=== PATIENT | female | born 1955 | race Caucasian/White ===

== ENCOUNTER 2018-07-05 10:00 | Emergency (ER) | payer BC ==
[~2018-07-05] VITALS: Ht 157.5 cm; Wt 79.4 kg
--- OUTSIDE RECORDS SUMMARY | 2018-07-05 10:09 | XMS REPORT | Continuity of Care Document ---
Author Author [facility] Organization [facility] Address Unknown Phone Unavailable Allergies There is no data. Medications There is no data. Problems Date Dx Coded Attending Type Code Diagnosis Diagnosed By 07/05/2014 CHRISTOPHER CAMPOS Ot 327.23 Procedures There is no data. Results There is no data. Encounters ACCT No. Visit Date/Time Discharge Status Pt. Type Provider Facility Loc./Unit Complaint [id number] 07/05/2014 18:14:00 07/05/2014 18:33:00 DIS Outpatient CHRISTOPHER CAMPOS [facility] SLEEP [email or web address] 07/19/2014 17:08:07 ACT Document Registration
[2018-07-05] MEDS ORDERED: LISI10TA2 PO (10:13)
[2018-07-05] MEDS ORDERED: ASPIRIN 81 MG CHEW (CHILDREN'S ASA) PO ONE (10:15)
[2018-07-05 10:19] LABS: BASOPHILS % (AUTO) 0 % (0-10); EOSINOPHILS # (AUTO) 0.3 10^3/uL (0.0-0.3); EOSINOPHILS % (AUTO) 5 % (0-10); HEMATOCRIT 38 % (35-52); HEMOGLOBIN 13.4 G/DL (11.5-16.0); LYMPHOCYTES # (AUTO) 1.9 X 10^3 (1.0-4.0); LYMPHOCYTES % (AUTO) 35 % (12-44); MEAN CORPUSCULAR HEMOGLOBIN 30 PG (25-34); MEAN CORPUSCULAR HGB CONC 35 G/DL (32-36); MEAN CORPUSCULAR VOLUME 87 FL (80-99); MEAN PLATELET VOLUME 10.6 FL (7.4-10.4); MONOCYTES # (AUTO) 0.5 X 10^3 (0.0-1.0); MONOCYTES % (AUTO) 8 % (0-12); NEUTROPHILS # (AUTO) 2.8 X 10^3 (1.8-7.8); NEUTROPHILS % (AUTO) 51 % (42-75); PLATELET COUNT 216 10^3/uL (130-400); RED BLOOD COUNT 4.43 10^6/uL (4.35-5.85); RED CELL DISTRIBUTION WIDTH 12.9 % (10.0-14.5); WHITE BLOOD COUNT 5.4 10^3/uL (4.3-11.0)
[2018-07-05 10:44] LABS: MYOGLOBIN SERUM 26.5 NG/ML (10.0-92.0)
--- NOTE | 2018-07-05 10:57 | ED Chest Pain ---
General Chief Complaint: Chest Pain Stated Complaint: CHEST PAIN;BP ISSUES Nursing Triage Note: AMB TO ROOM WAS SENT FROM [facility] C/O CHEST PAIN THAT WOKE HER UP AT 5AM NO PAIN ON ADMIT Nursing Sepsis Screen: No Definite Risk Source: patient Exam Limitations: no limitations History of Present Illness Date Seen by Provider: Jul 05, 2018 Time Seen by Provider: 10:03 Initial Comments Here by private vehicle from [place] where she was seen in clinic this morning for chest pain. States that it woke her up at about 5 a.m. and continued for about 15 minutes. Pain was central and radiated to the right neck into her back. States that it was 7 out of 10 and ultimately resolved on its own. Denies breathing problems, diaphoresis, vomiting or weakness. Did have diarrhea 2 times this morning but otherwise has had no other symptoms. Does have history of significant heart disease in her father at about the same age who had coronary artery disease as well as aortic aneurysm. Timing/Duration: 4-6 hours, gone now Severity/Quality: moderate, pressure Location: central Radiation: neck, back Activities at Onset: sleep Prior CP/Workup: no prior chest pain Modifying Factors: improves with rest ASA po DEPLOYMENT TECHNICIAN: No NTG SL DEPLOYMENT TECHNICIAN: No Associated Symptoms: No abdominal pain; back pain; No diaphoresis, No dizziness , No edema, No fever/chills, No heartburn, No nausea/vomiting, No shortness of breath, No weakness Allergies and Home Medications Allergies Coded Allergies: No Known Drug Allergies (Unverified , 07/05/18) Home Medications Lisinopril 10 Mg Tablet, 10 MG PO DAILY, (Reported) Patient Home Medication List Home Medication List Reviewed: Yes Review of Systems Review of Systems Constitutional: see HPI; No chills, No fever EENTM: No Symptoms Reported Respiratory: No Symptoms Reported Cardiovascular: See HPI, Chest Pain; Denies Edema, Denies Lightheadedness Gastrointestinal: Diarrhea; Denies Vomiting Genitourinary: No Symptoms Reported Musculoskeletal: see HPI; No joint pain, No muscle pain Skin: no symptoms reported All Other Systems Reviewed Negative Unless Noted: Yes Past Sjzhwxs-Jxfrdn-Xoenhr Hx Past Med/Social Hx: Reviewed Nursing Past Med/Soc Hx Patient Social History Alcohol Use: Denies Use Recreational Drug Use: No Smoking Status: Former Smoker Recent Foreign Travel: No Contact w/Someone Who Travel: No Recent Infectious Disease Expo: No Past Medical History Surgeries: Yes Appendectomy, Gallbladder, Hysterectomy Respiratory: No Cardiac: 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 oz. 79.413548lk; BMI Method:Stated General Appearance: No Apparent Distress, WD/WN HEENT: PERRL/EOMI, Pharynx Normal Neck: Non Tender, Supple Respiratory: Lungs Clear, Normal Breath Sounds Cardiovascular: Regular Rate, Rhythm, No Murmur Gastrointestinal: Non Tender, Soft Extremity: Normal Range of Motion, Non Tender Neurologic/Psychiatric: Alert, Oriented x3 Skin: Normal Color, Warm/Dry Progress/Results/Core Measures Results/Orders Lab Results Laboratory Tests Test 07/05/18 10:10 07/05/18 10:46 Range/Units White Blood Count 5.4 4.3-11.0 10^3/uL Red Blood Count 4.43 4.35-5.85 10^6/uL Hemoglobin 13.4 11.5-16.0 G/DL Hematocrit 38 35-52 % Mean Corpuscular Volume 87 80-99 FL Mean Corpuscular Hemoglobin 30 25-34 PG Mean Corpuscular Hemoglobin Concent 35 32-36 G/DL Red Cell Distribution Width 12.9 10.0-14.5 % Platelet Count 216 130-400 10^3/uL Mean Platelet Volume 10.6 H 7.4-10.4 FL Neutrophils (%) (Auto) 51 42-75 % Lymphocytes (%) (Auto) 35 12-44 % Monocytes (%) (Auto) 8 0-12 % Eosinophils (%) (Auto) 5 0-10 % Basophils (%) (Auto) 0 0-10 % Neutrophils # (Auto) 2.8 1.8-7.8 X 10^3 Lymphocytes # (Auto) 1.9 1.0-4.0 X 10^3 Monocytes # (Auto) 0.5 0.0-1.0 X 10^3 Eosinophils # (Auto) 0.3 0.0-0.3 10^3/uL Basophils # (Auto) 0.0 0.0-0.1 10^3/uL Sodium Level 137 135-145 MMOL/L Potassium Level 4.2 3.6-5.0 MMOL/L Chloride Level 103 98-107 MMOL/L Carbon Dioxide Level 22 21-32 MMOL/L Anion Gap 12 5-14 MMOL/L Blood Urea Nitrogen 18 7-18 MG/DL Creatinine 0.78 0.60-1.30 MG/DL Estimat Glomerular Filtration Rate > 60 BUN/Creatinine Ratio 23 Glucose Level 102 70-105 MG/DL Calcium Level 10.2 H 8.5-10.1 MG/DL Corrected Calcium 8.5-10.1 MG/DL Magnesium Level 2.4 1.8-2.4 MG/DL Total Bilirubin 0.4 0.1-1.0 MG/DL Aspartate Amino Transf (AST/SGOT) 20 5-34 U/L Alanine Aminotransferase (ALT/SGPT) 11 0-55 U/L Alkaline Phosphatase 72 40-136 U/L Myoglobin 26.5 10.0-92.0 NG/ML Troponin I < 0.028 <0.028 NG/ML Total Protein 7.7 6.4-8.2 GM/DL Albumin 4.6 H 3.2-4.5 GM/DL Lipase 21 8-78 U/L Prothrombin Time 12.1 L 12.2-14.7 SEC INR Comment 0.9 0.8-1.4 Activated Partial Thromboplast Time 29 24-35 SEC D-Dimer 0.50 H 0.00-0.49 UG/ML Thyroid Stimulating Hormone (TSH) 2.65 0.35-4.94 UIU/ML My Orders Orders - ELVIE BRASWELL MD Cbc With Automated Diff (07/05/18 10:02) Magnesium (07/05/18 10:02) Chest 1 View, Ap/Pa Only (07/05/18 10:02) Ekg Tracing (07/05/18 10:02) Cardiac Profile 1 (07/05/18 10:02) Comprehensive Metabolic Panel (07/05/18 10:02) Myoglobin Serum (07/05/18 10:02) Protime With Inr (07/05/18 10:02) Partial Thromboplastin Time (07/05/18 10:02) O2 (07/05/18 10:02) Monitor-Rhythm Ecg Trace Only (07/05/18 10:02) Lipid Panel (07/06/18 06:00) Aspirin Chewable Tablet (Baby Aspirin Ch (07/05/18 10:15) Saline Lock/Iv-Start (07/05/18 10:02) Lipase (07/05/18 10:02) Fibrin Degradation Products (07/05/18 10:02) Thyroid Stimulating Hormone (07/05/18 11:32) Echo W Doppler/Color Flow (07/05/18 11:46) Echo Rest/Stress Wo (07/05/18 11:46) Medications Given in ED Current Medications Medications Dose Ordered Sig/Fabian Route Start Time Stop Time Status Last Admin Dose Admin Aspirin 324 mg ONCE ONCE PO 07/05/18 10:15 07/05/18 10:16 DC 07/05/18 10:16 324 MG Vital Signs/I&O 07/05/18 07/05/18 10:00 10:20 Temp 98.3 Pulse 78 58 Resp 18 18 B/P (MAP) 138/70 (92) 146/94 (111) Pulse Ox 100 98 O2 Delivery Room Air Room Air Blood Pressure Mean: 111 Progress Progress Note : Progress Note Seen and evaluated. IV, labs, EKG and chest x-ray ordered. ASA 324 mg by mouth ordered. Monitor patient. 1127: I did discuss the case with Dr. Jordan. He will see the patient in the ER. Anticipate stress test today. Patient to be admitted. 1140: Dr. Jordan in the department evaluating patient and may be able to send her directly to stress and echo. Further plan per him. I did add thyroid studies per patient request and due to recent hypertension. Monitor patient. 1300: Patient was able to go to stress and stress echo and passed both without difficulty. Dr. Jordan is okay with patient being discharged home and he will see her in a month. No further concerns about cardiac events currently. She will continue her current medication regimen. Discharged home with return precautions. Patient family verbalized understanding instructions and agreement with plan. Initial ECG Impression Date: Jul 05, 2018 Initial ECG Impression Time: 10:05 Initial ECG Rate: 71 Initial ECG Rhythm: Normal Sinus Comment Sinus rhythm with normal axis. Prominent Q waves noted in lead 3 with T wave inversion in lead 3. No evidence of ST elevation ND. No previous available for comparison. I did review EKG from outside clinic from this morning and does have similar morphology overall but Q waves more pronounced in lead 3 on this study as well as T wave inversion. Interpreted by me. Diagnostic Imaging Diagonstic Imaging: Xray Plain Films/CT/US/NM/MRI: chest Comments [email or web address]. [facility]. [place], [place] NAME: YAIR ALVARADO [facility] REC#: [id number] PT STATUS: REG ER : 1955 PHYSICIAN: ELVIE BRASWELL MD ADMIT DATE: 07/05/18/ER Draft Date of Exam:07/05/18 CHEST 1 VIEW, AP/PA ONLY INDICATION: Hypertension and chest pain. TECHNIQUE: A frontal chest was obtained at 1024 hours. FINDINGS: The heart and mediastinal silhouette are normal in appearance. The lungs are clear. There is no pneumothorax or pleural fluid. IMPRESSION: Negative chest. Dictated on workstation # [id number] Dict: 07/05/18 1106 Trans: 07/05/18 1111 [id number] Interpreted by: ELI TEE MD Electronically signed by: Departure Communication (Admissions) Time/Spoke to Consulting Phy: 11:35 Impression Primary Impression: Chest pain Qualified Codes: R07.9 - Chest pain, unspecified Disposition: HOME, SELF-CARE Condition: Improved Departure-Patient Inst. Decision time for Depature: 13:15 Referrals: JOSE LUIS JORDAN MD Patient Instructions: Chest Pain (DC) Add. Discharge Instructions: All discharge instructions reviewed with patient and/or family. Voiced understanding. Continue home medications as directed. You may take an additional blood pressure pill daily if your blood pressure exceeds 170/[address] Jordan's office and make appointment for 1 month with him per his instructions. Continue previous instructions from her eye doctor. Return for worse pain, fever, vomiting, weakness, breathing problems or other concerns as needed. ELVIE BRASWELL MD Jul 05, 2018 10:57
[2018-07-05 11:02] LABS: INR 0.9 (0.8-1.4); PROTHROMBIN TIME PATIENT 12.1 SEC (12.2-14.7)
--- NOTE | 2018-07-05 11:11 | Diagnostic Imaging Report ---
INDICATION: Hypertension and chest pain. TECHNIQUE: A frontal chest was obtained at 1024 hours. FINDINGS: The heart and mediastinal silhouette are normal in appearance. The lungs are clear. There is no pneumothorax or pleural fluid. IMPRESSION: Negative chest. Dictated by: Dictated on workstation # [id number]
[2018-07-05 11:14] LABS: ALANINE AMINOTRANSFERASE 11 U/L (0-55); ALBUMIN 4.6 GM/DL (3.2-4.5); ALKALINE PHOSPHATASE 72 U/L (40-136); BILIRUBIN,TOTAL 0.4 MG/DL (0.1-1.0); BUN/CREATININE RATIO 23; CALCIUM 10.2 MG/DL (8.5-10.1); CARBON DIOXIDE 22 MMOL/L (21-32); CHLORIDE 103 MMOL/L (98-107); CREATININE SERUM 0.78 MG/DL (0.60-1.30); GFR ESTIMATED > 60; GLUCOSE 102 MG/DL (70-105); LIPASE 21 U/L (8-78); MAGNESIUM 2.4 MG/DL (1.8-2.4); POTASSIUM 4.2 MMOL/L (3.6-5.0); SODIUM 137 MMOL/L (135-145); TOTAL PROTEIN 7.7 GM/DL (6.4-8.2)
--- NOTE | 2018-07-05 12:49 | NUR ---
BACK FROM [facility]INGER.
--- NOTE | 2018-07-05 12:49 | Consultation-Cardiology ---
HPI-Cardiology Cardiology Consultation Date of Consultation 07/05/18 Date of Admission Time Seen by Provider: 11:30 Indication: chest pain HPI 63 years old lady with history of hypertension, had an episode where she had black spots in her eyes last week, had a checkup and she was told that she had a bleed secondary to hypertension. Woke up around 530 in the morning with chest pain described it as dull in nature in the retrosternal area, lasted for about half an hour and resolved spontaneously, she went to her medical doctor vent to the emergency room, no further episode of chest pain, no shortness of breath. No palpitation, no syncope or near syncopal episodes. No claudications. Has been compliant with her medications. Home Medications & Allergies Allergies: Coded Allergies: No Known Drug Allergies (Unverified , 07/05/18) Home Medication List Reviewed: Yes RBY-Jsbqjd-Vlgbjc Hx Patient Social History Marital Status: Employed/Student: employed Alcohol Use: Denies Use Recreational Drug Use: No Smoking Status: Former Smoker Recent Foreign Travel: No Recent Infectious Disease Expo: No Past Medical History as described below Family Medical History Significant Family History: No Pertinent Family Hx Family Medical Hx noncontributory to her current condition Review of Systems Constitutional: no symptoms reported, see HPI EENTM: see HPI, blurred vision (as described below) Respiratory: see HPI; No cough, No dyspnea on exertion, No hemoptysis, No orthopnea, No phlegm, No short of breath, No stridor, No wheezing, No other Cardiovascular: see HPI, chest pain; No edema, No Hx of Intervention, No palpitations, No syncope, No vascular heart diseas, No other Gastrointestinal: no symptoms reported, see HPI Genitourinary: no symptoms reported, see HPI Musculoskeletal: no symptoms reported, see HPI Skin: no symptoms reported, see HPI Psychiatric/Neurological: No Symptoms Reported, See HPI Reviewed Test Results Reviewed Test Results Lab Laboratory Tests Test 07/05/18 10:10 07/05/18 10:46 Range/Units White Blood Count 5.4 4.3-11.0 10^3/uL Red Blood Count 4.43 4.35-5.85 10^6/uL Hemoglobin 13.4 11.5-16.0 G/DL Hematocrit 38 35-52 % Mean Corpuscular Volume 87 80-99 FL Mean Corpuscular Hemoglobin 30 25-34 PG Mean Corpuscular Hemoglobin Concent 35 32-36 G/DL Red Cell Distribution Width 12.9 10.0-14.5 % Platelet Count 216 130-400 10^3/uL Mean Platelet Volume 10.6 H 7.4-10.4 FL Neutrophils (%) (Auto) 51 42-75 % Lymphocytes (%) (Auto) 35 12-44 % Monocytes (%) (Auto) 8 0-12 % Eosinophils (%) (Auto) 5 0-10 % Basophils (%) (Auto) 0 0-10 % Neutrophils # (Auto) 2.8 1.8-7.8 X 10^3 Lymphocytes # (Auto) 1.9 1.0-4.0 X 10^3 Monocytes # (Auto) 0.5 0.0-1.0 X 10^3 Eosinophils # (Auto) 0.3 0.0-0.3 10^3/uL Basophils # (Auto) 0.0 0.0-0.1 10^3/uL Sodium Level 137 135-145 MMOL/L Potassium Level 4.2 3.6-5.0 MMOL/L Chloride Level 103 98-107 MMOL/L Carbon Dioxide Level 22 21-32 MMOL/L Anion Gap 12 5-14 MMOL/L Blood Urea Nitrogen 18 7-18 MG/DL Creatinine 0.78 0.60-1.30 MG/DL Estimat Glomerular Filtration Rate > 60 BUN/Creatinine Ratio 23 Glucose Level 102 70-105 MG/DL Calcium Level 10.2 H 8.5-10.1 MG/DL Corrected Calcium 8.5-10.1 MG/DL Magnesium Level 2.4 1.8-2.4 MG/DL Total Bilirubin 0.4 0.1-1.0 MG/DL Aspartate Amino Transf (AST/SGOT) 20 5-34 U/L Alanine Aminotransferase (ALT/SGPT) 11 0-55 U/L Alkaline Phosphatase 72 40-136 U/L Myoglobin 26.5 10.0-92.0 NG/ML Troponin I < 0.028 <0.028 NG/ML Total Protein 7.7 6.4-8.2 GM/DL Albumin 4.6 H 3.2-4.5 GM/DL Lipase 21 8-78 U/L Prothrombin Time 12.1 L 12.2-14.7 SEC INR Comment 0.9 0.8-1.4 Activated Partial Thromboplast Time 29 24-35 SEC D-Dimer 0.50 H 0.00-0.49 UG/ML Thyroid Stimulating Hormone (TSH) 2.65 0.35-4.94 UIU/ML Physical Exam Vital Signs Vital Signs - First Documented 07/05/18 10:00 Temp 98.3 Pulse 78 Resp 18 B/P (MAP) 138/70 (92) Pulse Ox 100 O2 Delivery Room Air Capillary Refill : Less Than 3 Seconds Height, Weight, BMI Height: 5'2.00" Weight: 175lbs. oz. 79.543052yu; BMI Method:Stated General Appearance: No Apparent Distress, WD/WN Eyes: Bilateral Eye Normal Inspection, Bilateral Eye PERRL, Bilateral Eye EOMI HEENT: PERRL/EOMI, TMs Normal, Normal ENT Inspection, Pharynx Normal Neck: Full Range of Motion, Normal Inspection, Non Tender, Supple, Carotid Bruit Respiratory: Chest Non Tender, Lungs Clear, Normal Breath Sounds, No Accessory Muscle Use, No Respiratory Distress Cardiovascular: Regular Rate, Rhythm, No Edema, No Gallop, No JVD, No Murmur, Normal Peripheral Pulses Gastrointestinal: Normal Bowel Sounds, No Organomegaly, No Pulsatile Mass, Non Tender, Soft Back: Normal Inspection, No CVA Tenderness, No Vertebral Tenderness Extremity: Normal Capillary Refill, Normal Inspection, Normal Range of Motion, Non Tender, No Calf Tenderness, No Pedal Edema Neurologic/Psychiatric: Alert, Oriented x3, No Motor/Sensory Deficits, Normal Mood/Affect Skin: Normal Color, Warm/Dry Lymphatic: No Adenopathy A/P-Cardiology Admission Diagnosis Chest pain Hypertension Intraocular bleed Assessment/Plan Chest pain nonspecific etiology, minimal nondiagnostic EKG changes, cardiac enzymes are negative, did not have chest pain for the past 6 hours. I proceeded with exercise stress echo showing good exercise tolerance for total of 6 minutes on Benny protocol. No ischemic changes on echo, minimal nondiagnostic changes on EKG. Hypertension, maintained on lisinopril as an outpatient. I instructed her to continue on current medication monitor blood pressure at home on a daily basis and record it and reported to me in the office. Intraocular bleed, reported that it was secondary to hypertension. Continue to monitor Okay for discharge from ER follow-up in my office in one month Clinical Quality Measures AMI/AHF: ASA po Prior to arrival: JOSE LUIS Trejo MD Jul 05, 2018 12:49
[2018-07-05 13:26] VITALS: BP 116/73
== END 2018-07-05 13:26 | disposition home or self-care (01) ==
LOC: ER 10:00
DX: R07.89 Other chest pain (principal); I10 Essential (primary) hypertension; Z82.49 Family history of ischemic heart disease and other diseases of the circulatory system; Z87.891 Personal history of nicotine dependence; Z90.49 Acquired absence of other specified parts of digestive tract; Z90.710 Acquired absence of both cervix and uterus
CPT/HCPCS: 36415; 71045; 80053; 83690; 83735; 83874; 84443; 84484; 85025; 85379; 85610; 85730; 93005; 93041; 93306; 93351

== ENCOUNTER → 2021-03-04 | Outpatient (CLI) | payer MEDICARE ==
[~2021-03-04] MED LIST: LISI10TA25 PO
--- NOTE | 2021-03-04 16:42 | Diagnostic Imaging Report ---
INDICATION: Postmenopausal screening for osteoporosis. COMPARISON: None. FINDINGS: AP Spine L1-L4: [BMD (g/cm2): 1.224] [T-Score: 0.2] [Z-Score: 1.2] [BMD Previous: NA] [BMD % Change: NA] LT Hip Neck: [BMD (g/cm2): 0.901] [T-Score: -1.0] [Z-Score: 0.2] LT Hip Total: [BMD (g/cm2):0.979] [T-Score:-0.2] [Z-Score: 0.6] [BMD Previous: NA] [BMD % Change: NA] RT Hip Neck: [BMD (g/cm2):0.853] [T-Score:-1.3] [Z-Score:-0.2] RT Hip Total: [BMD (g/cm2):0.845] [T-score:-1.3] [Z-Score:-0.4] [BMD Previous:NA] [BMD % Change:NA] *Indicates significant change from prior examination based on 95% confidence level. World Health Organization criteria for BMD interpretation classify patients as Normal (T-score at or above -1.0), Osteopenic (T-score between -1.0 and -2.5) or Osteoporotic (T-score at or below -2.5). LIMITATIONS AND MODIFICATION: None. FRACTURE RISK (FRAX SCORE): The ten year probability of (%): Major Osteoporotic Fracture: [8.4] Hip Fracture: [0.8] IMPRESSION: 1. Osteopenia (Low bone mass). 2. Baseline examination. 3. See below National Osteoporosis Foundation guidelines on when to potentially initiate pharmacologic therapy. Based on the National Osteoporosis Foundation Guidelines, pharmacologic treatment should be initiated in any of the following, unless clinical conditions suggest otherwise: * Any patient with prior fragility fracture of the hip or vertebrae. A spine fracture indicates 5X risk for subsequent spine fracture and 2X risk for subsequent hip fracture. * Osteoporosis (T-score <-2.5). * Postmenopausal women and men age 50 and older with low bone mass/osteopenia (T-score between -1.0 and -2.5) by DXA and 10-year major osteoporotic fracture greater than 20% or a 10-year probability of hip fracture greater than 3%. These fracture risks are supplied above in the FRAX score, if applicable. * Clinician judgement and/or patient preferences may indicate treatment for people with 10-year fracture probabilities above or below these levels. Dictated by: Dictated on workstation # [id number]
== END ==
LOC: RAD 14:30
PROVIDERS: ATTEND Nurse Practitioner Family
DX: Z13.820 Encounter for screening for osteoporosis (principal); M85.80 Other specified disorders of bone density and structure, unspecified site; Z78.0 Asymptomatic menopausal state
CPT/HCPCS: 77080

== ENCOUNTER → 2022-06-01 | Outpatient (CLI) | payer MEDICARE ==
--- NOTE | 2022-06-01 18:36 | Diagnostic Imaging Report ---
HISTORY: Bilateral knee pain, synovial cyst in the left knee COMPARISON: None TECHNIQUE: 3 views of the bilateral knees. FINDINGS: No acute fracture or dislocation is seen in the bilateral knees. There are mild degenerative changes in the medial and patellofemoral compartments bilaterally. There are small bilateral knee joint effusions. IMPRESSION: 1. Mild degenerative changes in the bilateral knees with small knee joint effusions. No acute fracture is seen. Dictated by: Dictated on workstation # [id number]
== END ==
LOC: RAD FS 16:33
PROVIDERS: ATTEND Nurse Practitioner Family
DX: M17.0 Bilateral primary osteoarthritis of knee (principal); M71.22 Synovial cyst of popliteal space [Baker], left knee